=== PATIENT | female | born 2000 ===

== ENCOUNTER 2020-11-04 05:39 | Inpatient (IN) | payer OTHER ==
[~2020-11-04] VITALS: Ht 157.5 cm; Wt 2.7 kg
[2020-11-04] MEDS ORDERED: PRENATAL TABLE1 EAC1 PO (06:21)
== END 2020-11-07 12:05 | disposition home or self-care (01) | DRG 788 ==
LOC: OB/GYN 05:39 → LDR 05:39 → O/R 18:03 → OB/GYN 18:53
PROVIDERS: ADMIT Obstetrics & Gynecology; ATTEND Obstetrics & Gynecology
PROC: 3E033VJ Introduction of Other Hormone into Peripheral Vein, Percutaneous Approach (ICD-10-PCS; 2020-11-04)
PROC: 4A1HXFZ Monitoring of Products of Conception, Cardiac Rhythm, External Approach (ICD-10-PCS; 2020-11-04)
PROC: 10D00Z1 Extraction of Products of Conception, Low, Open Approach (ICD-10-PCS; principal; 2020-11-04 15:30)
DX: O62.1 Secondary uterine inertia (principal); O61.0 Failed medical induction of labor; Z3A.40 40 weeks gestation of pregnancy; Z37.0 Single live birth; O65.4 Obstructed labor due to fetopelvic disproportion, unspecified

== ENCOUNTER 2024-01-04 15:56 | Outpatient (CLI) | payer OTHER ==
[~2024-01-04 15:56] MED LIST: PRENATAL TABLE1 EAC1 PO
== END 2024-01-04 15:58 | disposition home or self-care (01) ==
LOC: PRENATAL 15:56
PROVIDERS: ATTEND Obstetrics & Gynecology Maternal & Fetal Medicine
DX: O35.3XX0 Maternal care for (suspected) damage to fetus from viral disease in mother, not applicable or unspecified (principal); O34.219 Maternal care for unspecified type scar from previous cesarean delivery; O44.00 Complete placenta previa NOS or without hemorrhage, unspecified trimester; O99.210 Obesity complicating pregnancy, unspecified trimester; Z3A.20 20 weeks gestation of pregnancy

== ENCOUNTER 2024-05-03 17:45 | Outpatient (CLI) | payer OTHER ==
[~2024-05-03] VITALS: Ht 157.5 cm; Wt 99.8 kg
[2024-05-03 18:32] LABS: URINE APPEARANCE Cloudy; URINE BILIRRUBIN Negative (NEGATIVE); URINE BLOOD Negative; URINE COLOR Yellow; URINE GLUCOSE Negative (NEGATIVE); URINE LEUKOCYTE Small; URINE NITRATE Negative; URINE PROTEIN Trace (NEGATIVE)
[2024-05-03 18:36] LABS: URINE BACTERIA 3604.6 uL (0.0-1933); URINE RBC 5.8 uL (0.0-20.8); URINE WBC 132.8 uL (0.0-23.2)
[2024-05-03 18:37] LABS: HEMATOCRIT 28.9 % (36.0-45.00); HEMOGLOBIN 9.7 g/dL (12.0-15.00); MEAN CELL VOLUME 80.7 fL (80.00-100.00); MEAN CORPUSCULAR HEMOGLOBIN 27.1 pg (27.00-32.0); MEAN CORPUSCULAR HGB CONC 33.6 g/dl (32.0-36.0); PLATELET COUNT 253 K/uL (150-450); RED BLOOD COUNT 3.58 M/uL (4.00-6.00); RED CELL DISTRIBUTION WIDTH 16.1 % (11.5-14.5)
[2024-05-03 19:32] LABS: URINE CRYSTALS FEW /HPF
[2024-05-03] MEDS ORDERED: CEFAZOLIN SODIUM 1,000 MG VIAL IV SCH (20:27)
[2024-05-03] MEDS ORDERED: RINGERS SOLUTION,LACTATED 1,000 ML IV SCH (20:30)
== END 2024-05-04 13:30 | disposition home or self-care (01) ==
LOC: OBS/DEL 17:45
PROVIDERS: Obstetrics & Gynecology; ATTEND Obstetrics & Gynecology
DX: O26.893 Other specified pregnancy related conditions, third trimester (principal); R10.2 Pelvic and perineal pain; Z3A.37 37 weeks gestation of pregnancy

== ENCOUNTER 2024-05-11 11:55 | Inpatient (IN) | payer OTHER ==
[~2024-05-11] VITALS: Ht 157.5 cm; Wt 100.2 kg
[2024-05-11 13:03] LABS: HEMATOCRIT 31.6 % (36.0-45.00); HEMOGLOBIN 10.5 g/dL (12.0-15.00); MEAN CELL VOLUME 79.3 fL (80.00-100.00); MEAN CORPUSCULAR HEMOGLOBIN 26.4 pg (27.00-32.0); MEAN CORPUSCULAR HGB CONC 33.3 g/dl (32.0-36.0); PLATELET COUNT 289 K/uL (150-450); RED BLOOD COUNT 3.98 M/uL (4.00-6.00); RED CELL DISTRIBUTION WIDTH 16.2 % (11.5-14.5)
[2024-05-11 13:07] LABS: PH,URINE 7.5 (5.0-8.0); URINE APPEARANCE Clear; URINE BILIRRUBIN Negative (NEGATIVE); URINE BLOOD Negative; URINE COLOR Yellow; URINE GLUCOSE Negative (NEGATIVE); URINE LEUKOCYTE Trace; URINE NITRATE Negative; URINE PROTEIN Trace (NEGATIVE)
[2024-05-11 13:09] LABS: URINE BACTERIA 2233.8 uL (0.0-1933); URINE EPITHELIAL CELLS 39.2 uL (0.0-38.8); URINE RBC 8.2 uL (0.0-20.8); URINE WBC 30.8 uL (0.0-23.2)
[2024-05-11 13:37] LABS: INR < 0.93; PARTIAL THROMBOPLASTIN TIME 28.9 SECONDS (22.0-34.0); PROTHROMBIN TIME 9.8 SECONDS (9.0-11.5)
[2024-05-15] MEDS ORDERED: OXYTOCIN 10 UNITS/ML VIAL ONE (14:33)
[2024-05-15] MEDS ORDERED: ERYTHROMYCIN BASE 1 GM TUBE OP ONE (14:33)
[2024-05-15] MEDS ORDERED: CEFAZOLIN SODIUM 1,000 MG VIAL ONE (14:36)
[2024-05-15] MEDS ORDERED: ONDANSETRON HCL 2 MG/ML VIAL ONE (17:44)
[2024-05-15] MEDS ORDERED: MEPERIDINE HCL/PF 50 MG/ML VIAL IM PRN (18:30)
[2024-05-15] MEDS ORDERED: PROMETHAZINE HCL 50 MG/ML AMPUL IM PRN (18:30)
[2024-05-15] MEDS ORDERED: PROMETHAZINE HCL 50 MG/ML AMPUL IM ONE (18:55)
[2024-05-15 22:57] LABS: ABG PO2 15.2 mmHg (80-100); ABG pCO2 59.6 mmHg (35-45); BASE EXCESS -5.6 mmol/l; BICARBONATE 23.2 mmol/l (23-25); SaO2 13.2 %; Tco2 25.1 mmol/l; o2 21 %
[2024-05-15 22:58] LABS: ABG PH 7.209 (7.35-7.45)
[2024-05-16 06:51] LABS: HEMATOCRIT 29.7 % (36.0-45.00); MEAN CELL VOLUME 78.4 fL (80.00-100.00); MEAN CORPUSCULAR HEMOGLOBIN 26.4 pg (27.00-32.0); MEAN CORPUSCULAR HGB CONC 33.6 g/dl (32.0-36.0); PLATELET COUNT 240 K/uL (150-450); RED BLOOD COUNT 3.79 M/uL (4.00-6.00)
[2024-05-16] MEDS ORDERED: OxyCODONE HCL/APAP UD (PERCOCET) PO PRN (08:00)
[2024-05-16] MEDS ORDERED: PNV,CALCIUM 72/IRON/FOLIC ACID 1 TAB TABLET PO SCH (09:00)
[2024-05-16] MEDS ORDERED: SIMETHICONE 125 MG CAPSULE PO SCH (09:00)
[2024-05-16] MEDS ORDERED: DOCUSATE SODIUM 100MG CAP PO SCH (09:00)
== END 2024-05-18 15:57 | disposition home or self-care (01) | DRG 785 ==
LOC: OB/GYN 05-15 07:00 → O/R 05-15 07:35 → OB/GYN 05-15 11:54
PROVIDERS: ADMIT Obstetrics & Gynecology; ATTEND Obstetrics & Gynecology
PROC: 0UB70ZZ Excision of Bilateral Fallopian Tubes, Open Approach (ICD-10-PCS; 2024-05-15)
PROC: 4A1HXCZ Monitoring of Products of Conception, Cardiac Rate, External Approach (ICD-10-PCS; 2024-05-15)
PROC: 10D00Z1 Extraction of Products of Conception, Low, Open Approach (ICD-10-PCS; principal; 2024-05-15 07:00)
DX: O34.211 Maternal care for low transverse scar from previous cesarean delivery (principal); Z3A.39 39 weeks gestation of pregnancy; Z37.0 Single live birth; Z30.2 Encounter for sterilization; Z20.822 Contact with and (suspected) exposure to COVID-19